=== PATIENT | female | born 1955 | race Caucasian/White ===

== ENCOUNTER 2024-04-27 16:31 | Emergency (ER) | payer MEDICARE, OTHER ==
[~2024-04-27] VITALS: Ht 149.9 cm; Wt 78.9 kg
[2024-04-27] MEDS ORDERED: IBUP-1953 PO (18:20)
[2024-04-27 18:51] VITALS: BP 126/82; TEMP 98.1; O2SAT 97
== END 2024-04-27 18:51 | disposition home or self-care (01) ==
LOC: ER 16:41
DX: S82.432A Displaced oblique fracture of shaft of left fibula, initial encounter for closed fracture (principal); Z85.3 Personal history of malignant neoplasm of breast; W01.0XXA Fall on same level from slipping, tripping and stumbling without subsequent striking against object, initial encounter; Y93.01 Activity, walking, marching and hiking; Y92.128 Other place in nursing home as the place of occurrence of the external cause; Y99.8 Other external cause status
CPT/HCPCS: 73610-TC